=== PATIENT | female | born 1965 | race Caucasian/White ===

== ENCOUNTER 2016-12-26 17:17 | Emergency (ER) | payer BC ==
[~2016-12-26] VITALS: Ht 162.6 cm; Wt 65.8 kg
[~2016-12-26 17:17] MED LIST: CARCD120 PO; ELA50 PO; FIOR; IMI6I; KLO0.5 PO
[2016-12-26 20:22] LABS: BASOPHIL % 0.5 % (0-2); CALCIUM 8.6 mg/dL (8.5-10.1); CARBON DIOXIDE 30.1 mmol/L (21-32); CHLORIDE SERUM 105 mmol/L (98-107); CREATININE SERUM 0.6 mg/dL (0.6-1.0); GFR1 > 60 mL/min; GLUCOSE SERUM 87 mg/dL (74-106); PLATELET COUNT 228 x10^3mcL (130-400); POTASSIUM SERUM 3.9 mmol/L (3.5-5.1); SODIUM SERUM 141 mmol/L (136-145)
[2016-12-26 20:23] LABS: RED CELL DISTRIBUTION WIDTH 15.8 % (11.5-14.5)
[2016-12-26 20:27] LABS: ALBUMIN 3.6 g/dL (3.4-5.0); ALKALINE PHOSPHATASE 133 U/L (46-116); ALT/SGPT 30 U/L (14-59); AST/SGOT 27 U/L (15-37); BILIRUBIN TOTAL 0.2 mg/dL (0.20-1.00); TOTAL PROTEIN, SERUM 7.7 g/dL (6.4-8.2)
[2016-12-26 23:32] VITALS: BP 143/82
== END 2016-12-26 23:32 | disposition home or self-care (01) ==
LOC: ED 17:17
PROVIDERS: Emergency Medicine
DX: R42 Dizziness and giddiness (principal); I10 Essential (primary) hypertension; G43.909 Migraine, unspecified, not intractable, without status migrainosus
CPT/HCPCS: J2270; J3010; J8597; Q0162

== ENCOUNTER 2018-01-18 13:22 | Emergency (ER) | payer BC ==
[~2018-01-18] VITALS: Ht 160 cm; Wt 70.3 kg
[2018-01-18 13:30] VITALS: Ht 160 cm; Wt 70.3 kg
[2018-01-18 15:20] LABS: BASOPHIL % 0.5 % (0-2); PLATELET COUNT 182 x10^3mcL (130-400); RED CELL DISTRIBUTION WIDTH 13.4 % (11.5-14.5)
[2018-01-18 15:37] LABS: CALCIUM 8.2 mg/dL (8.5-10.1); CARBON DIOXIDE 28.4 mmol/L (21-32); CHLORIDE SERUM 106 mmol/L (98-107); CREATININE SERUM 0.5 mg/dL (0.6-1.0); GFR1 > 60 mL/min; GLUCOSE SERUM 83 mg/dL (74-106); POTASSIUM SERUM 3.5 mmol/L (3.5-5.1); SODIUM SERUM 141 mmol/L (136-145)
[2018-01-18 15:41] LABS: ALKALINE PHOSPHATASE 101 U/L (46-116); ALT/SGPT 25 U/L (14-59); AST/SGOT 22 U/L (15-37); BILIRUBIN TOTAL 0.17 mg/dL (0.20-1.00); TOTAL PROTEIN, SERUM 6.2 g/dL (6.4-8.2)
[2018-01-18 15:55] VITALS: BP 146/76
== END 2018-01-18 16:02 | disposition home or self-care (01) ==
LOC: ED 13:22
PROVIDERS: Emergency Medicine
DX: G43.909 Migraine, unspecified, not intractable, without status migrainosus (principal); I10 Essential (primary) hypertension
CPT/HCPCS: 83880; J1200; J2765; J7030

== ENCOUNTER 2019-04-03 16:45 | Emergency (ER) | payer BC ==
[~2019-04-03] VITALS: Ht 157.5 cm; Wt 69.4 kg
[2019-04-03 16:51] VITALS: BP 178/84; Ht 157.5 cm; Wt 69.4 kg
[2019-04-03 18:16] LABS: BASOPHIL % 0.5 % (0-2); PLATELET COUNT 174 x10^3mcL (130-400); RED CELL DISTRIBUTION WIDTH 13.8 % (11.5-14.5)
== END 2019-04-03 18:46 | disposition home or self-care (01) ==
LOC: ED 16:45
PROVIDERS: Emergency Medicine
DX: G43.909 Migraine, unspecified, not intractable, without status migrainosus (principal); R11.2 Nausea with vomiting, unspecified; I10 Essential (primary) hypertension; Z86.2 Personal history of diseases of the blood and blood-forming organs and certain disorders involving the immune mechanism
CPT/HCPCS: 36415; J1885; J2765